=== PATIENT | female | born 1990 | race Caucasian/White ===

== ENCOUNTER 2017-10-12 12:06 | Observation (INO) | payer MEDICAID, OTHER ==
[2017-10-12 12:24] VITALS: BMI 24.3
[2017-10-12 14:05] LABS: BASO # 0.1 K/uL (0.0-0.2); BASO % 1.2 % (0.0-2.0); EOS # 0.1 K/uL (0.0-0.7); EOS % 1.1 % (0.0-4.0); HEMOGLOBIN 14.1 g/dL (11.0-16.0); LYMPH # 2.8 K/uL (1.0-4.3); LYMPH % 53.3 % (20.0-40.0); MEAN CORPUSCULAR HEMOGLOBIN 28.6 pg (27.0-31.0); MEAN CORPUSCULAR HGB CONC 32.9 g/dL (33.0-37.0); MONO # 0.5 K/uL (0.0-0.8); MONO % 8.9 % (0.0-10.0); NEUT # 1.9 K/uL (1.8-7.0); NEUT % 35.5 % (50.0-75.0); RBC 4.91 Mil/uL (3.80-5.20); RED CELL DISTRIBUTION WIDTH 13.7 % (11.5-14.5); WHITE BLOOD COUNT 5.3 K/uL (4.8-10.8)
[2017-10-12 14:13] LABS: INR 1.1; PROTHROMBIN TIME 12.1 SECONDS (9.7-12.2)
[2017-10-12 14:16] LABS: HCG,QUALITATIVE URINE NEGATIVE (NEGATIVE)
[2017-10-12 14:20] LABS: ALBUMIN 4.4 g/dL (3.5-5.0); ALT/SGPT 15 U/L (9-52); AST/SGOT 33 U/L (14-36); BLOOD UREA NITROGEN 13 mg/dL (7-17); CALCIUM 9.2 mg/dl (8.6-10.4); GFR AFRICAN-AMERICAN > 60; GFR NON-AFRICAN AMERICAN > 60; HDL CHOLESTEROL 61 mg/dL (30-70)
[2017-10-12 14:25] LABS: SQUAMOUS EPITHIAL 4 /hpf (0-5); URINE BILIRUBIN NEGATIVE (NEGATIVE); URINE BLOOD NEGATIVE (NEGATIVE); URINE CLARITY Clear (Clear); URINE COLOR Yellow (YELLOW); URINE GLUCOSE (UA) NORMAL (Normal); URINE LEUKOCYTE ESTERASE NEG Leu/uL (Negative); URINE PROTEIN NEGATIVE (NEGATIVE); URINE UROBILINOGEN NORMAL mg/dL (0.2-1.0)
[2017-10-12 14:30] LABS: LDL CHOLESTEROL 138 mg/dL (0-129)
[2017-10-12 14:31] LABS: B-TYPE NATRIURETIC PEPTIDE 100 pg/mL (0-450); CK-MB 0.34 ng/mL (0.0-3.38)
--- NOTE | 2017-10-12 14:47 | C.PDOC ---
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 Patient has history of aortic and mitral valve replacement in 2010 at [facility]. Patient had another porcine mitral valve replacement in 2013. Patient has not been medically evaluated during the past year because of insurance issues. Her most recent echocardiogram was one year ago at the [facility]. Patient presets to the ED for evaluation of mid-sternal chest pain which began 3 days ago. She describes her pain as a tightness and a "pulling" sensation that radiates to the left side of her neck. Patient has not taken anything for pain. She states the pain is mild, but was worried since she has not had any care for one year. She denies shortness of breath, dizziness, nausea, vomiting, extremity numbness/weakness, and recent travel. Her LMP was 3 days ago. Time Seen by Provider: 10/12/17 13:34 Chief Complaint (Nursing): Chest Pain History Per: Patient History/Exam Limitations: no limitations Onset/Duration Of Symptoms: Days (3) Current Symptoms Are (Timing): Still Present Quality: Tightness, "Pain", Other (pulling sensation ) Associated Symptoms: denies: Nausea Recent travel outside of the [place]: No Additional History Per: Patient Past Medical History Reviewed: Historical Data, Nursing Documentation, Vital Signs Vital Signs: Last Vital Signs Temp 97.8 F 10/12/17 12:24 Pulse 52 L 10/12/17 16:49 Resp 16 10/12/17 16:49 BP 105/61 10/12/17 16:49 Pulse Ox 97 10/12/17 17:18 - Medical History Other PMH: rheumatic fever Other Surgeries: valve replacement Family History: States: Unknown Family Hx - Social History Hx Alcohol Use: No Hx Substance Use: No - Immunization History Hx Tetanus Toxoid Vaccination: No Hx Influenza Vaccination: No Hx Pneumococcal Vaccination: No Review Of Systems Cardiovascular: Positive for: Chest Pain (mid-sternal ) Respiratory: Negative for: Shortness of Breath Gastrointestinal: Negative for: Nausea, Vomiting Neurological: Negative for: Weakness, Numbness, Dizziness Physical Exam - Physical Exam Appears: Non-toxic, No Acute Distress, Other (appears older than stated age ) Skin: Normal Color, Warm, Dry Head: Atraumatic, Normacephalic Eye(s): bilateral: Normal Inspection, EOMI Oral Mucosa: Moist Neck: Normal ROM, Supple Chest: Symmetrical, No Deformity, No Tenderness, Other (mid-sternal chest scar ) Cardiovascular: Rhythm Regular, Murmur (harsh systolic) Respiratory: Normal Breath Sounds, No Rales, No Rhonchi, No Wheezing Gastrointestinal/Abdominal: Soft, No Tenderness, No Guarding, No Rebound Extremity: Normal ROM, No Pedal Edema, Capillary Refill (less than 2 seconds ), No Swelling Pulses: Left Dorsalis Pedis: Normal, Right Dorsalis Pedis: Normal Neurological/Psych: Oriented x3, Normal Speech Gait: Steady ED Course And Treatment - Laboratory Results Result Diagrams: 10/12/17 13:58 10/12/17 13:58 Lab Interpretation: No Acute Changes ECG: Interpreted By Me, Viewed By Me ECG Rhythm: Sinus Bradycardia ECG Interpretation: No Acute Changes Interpretation Of ECG: NS at sinus bradycardia at 53 bpm with RBB, no priors available for comparison O2 Sat by Pulse Oximetry: 97 (on RA) Pulse Ox Interpretation: Normal Medical Decision Making Medical Decision Making: Impression: 27 year old female with mid-sternal chest pain Plan: * bloodwork * urinalysis * CXR * EKG * reassess and disposition Progress: Bloodwork, urinalysis, CXR, and EKG ordered and reviewed. case was discussed with ER attending who advised admission and to contact machine ii engraver. Placed orders for consults and admission 1500 Spoke with cardiology mid level practitioner Dr Garner to discuss case and will come to ED to evaluate; will need echo [address] Bee who accepts patient for observation. Disposition - Disposition Disposition: HOSPITALIZED Disposition Time: 15:15 Condition: STABLE - POA Present On Arrival: None - Clinical Impression Clinical Impression: H/O mitral valve replacement, H/O: rheumatic fever, Chest pain - PA / SENIOR BOILER OPERATOR / Resident Statement MD/DO has reviewed & agrees with the documentation as recorded. - Scribe Statement The provider has reviewed the documentation as recorded by the Scribe (Diane Barnes) All medical record entries made by the Scribe were at my direction and personally dictated by me. I have reviewed the chart and agree that the record accurately reflects my personal performance of the history, physical exam, medical decision making, and the department course for this patient. I have also personally directed, reviewed, and agree with the discharge instructions and disposition. Decision To Admit - Pt Status Changed To: Hospital Disposition Of: Observation - . Bed Request Type: Telemetry Admitting Physician: Shay Miranda Patient Diagnosis: H/O mitral valve replacement, H/O: rheumatic fever, Chest pain
--- NOTE | 2017-10-12 15:02 | RAD ---
HISTORY: COMPARISON: No prior. TECHNIQUE: Chest PA and lateral FINDINGS: LINES AND TUBES: None. LUNG AND PLEURA: The lungs are well inflated. There is mild pulmonary venous congestion. No focal consolidation. HEART AND MEDIASTINUM: The heart is not enlarged. The hilar and mediastinal contours are within normal limits. Status post median sternotomy and aortic valve replacement. SKELETAL STRUCTURES: The bony structures are within normal limits for the patient's age. VISUALIZED UPPER ABDOMEN: Normal. OTHER FINDINGS: None. IMPRESSION: No active pulmonary disease. Mild pulmonary venous congestion.
--- NOTE | 2017-10-12 17:35 | CP.PCM.HP ---
History of Present Illness - History of Present Illness History of Present Illness: Slackline Operator: Shira ([id number]) CC: Chest Pain HPI: Patient is a 27 year old Vietnamese-speaking female with past medical history of Rheumatic fever and Mitral/Aortic valve replacement (5 years ago), who presents to the ED with complaints of intermittent chest pain that has been ongoing for 3 days. Patient describes that pain has an intermittent pulsating chest pain that lasts for 3 minutes with radiation to the left neck and intermittently causing left arm numbness and it is caused with mild activity such as cleaning. Patient reports that the chest pain is improved with Ibuprofen and laying on the right side. Patient admits a total of 5 episodes over the past 3 days. Patient denies fever, chills, SOB, recent sickness, recent travels but admits to palpitations and one episode of dizziness this morning. PMHx: Rheumatic fever PSHx: Porcine mitral and aortic valve replacement ( 5 years ago in ), C- section X2 FHx: Denies Medication: ASA 81mg PO daily Allergies: NKDA Social Hx: Moved to the [place] 4 years ago, unemployed, lives with children. Denies current or former tobacco, ETOH and Illicit drugs. Present on Admission - Present on Admission Any Indicators Present on Admission: No Review of Systems - Constitutional Constitutional: absent: Chills, Excessive Sweating, Fever, Headache, Weakness - EENT Eyes: absent: Blurred Vision, Change in Vision Ears: Dizziness - Cardiovascular Cardiovascular: Chest Pain, Chest Pain with Activity, Palpitations. absent: Acrocyanosis, Chest Pain at Rest, Diaphoresis, Dyspnea, Dyspnea on Exertion, Orthopnea, Pedal Edema - Respiratory Respiratory: absent: Dyspnea, Hemoptysis, Wheezing, Pain on Inspiration - Gastrointestinal Gastrointestinal: Abdominal Pain, Nausea, Vomiting. absent: Constipation, Cramping, Diarrhea, Hematemesis, Hematochezia - Reproductive: Female Reproductive:Female: Menses 1-7 Days, Normal Menses - Neurological Neurological: Dizziness, Numbness. absent: Lack of Coordination, Weakness - Psychiatric Psychiatric: absent: Anxiety - Endocrine Endocrine: Palpitations. absent: Fatigue Past Patient History - Past Social History Smoking Status: Never Smoked - CARDIAC Other/Comment: rheumatoid fever with valve infection. - PSYCHIATRIC Hx Substance Use: No - SURGICAL HISTORY Other/Comment: valve replacement - ANESTHESIA Hx Anesthesia: Yes Hx Anesthesia Reactions: No Meds Allergies/Adverse Reactions: Allergies Allergy/AdvReac Type Severity Reaction Status Date / Time No Known Allergies Allergy Verified 10/12/17 12:22 Physical Exam - Constitutional Appears: No Acute Distress - Head Exam Head Exam: ATRAUMATIC, NORMAL INSPECTION - Eye Exam Eye Exam: EOMI, Normal appearance - ENT Exam ENT Exam: Mucous Membranes Moist - Respiratory Exam Respiratory Exam: Clear to Auscultation Bilateral, NORMAL BREATHING PATTERN. absent: Rhonchi, Wheezes, Respiratory Distress - Cardiovascular Exam Cardiovascular Exam: Tachycardia, REGULAR RHYTHM, +S1, +S2, Systolic Murmur - GI/Abdominal Exam GI & Abdominal Exam: Normal Bowel Sounds, Soft. absent: Diminished Bowel Sounds , Distended, Guarding, Hernia, Tenderness - Extremities Exam Extremities exam: Positive for: normal inspection. Negative for: calf tenderness - Neurological Exam Neurological exam: Alert, Normal Gait, Oriented x3 - Skin Skin Exam: Normal Color Results - Vital Signs Recent Vital Signs: Last Vital Signs Temp 97.8 F 10/12/17 12:24 Pulse 52 L 10/12/17 16:49 Resp 16 10/12/17 16:49 BP 105/61 10/12/17 16:49 Pulse Ox 100 10/12/17 16:49 - Labs Result Diagrams: 10/12/17 13:58 10/12/17 13:58 Labs: Laboratory Results - last 24 hr 10/12/17 10/12/17 10/12/17 13:58 13:58 13:58 WBC 5.3 RBC 4.91 Hgb 14.1 Hct 42.7 MCV 87.0 MCH 28.6 MCHC 32.9 L RDW 13.7 Plt Count 267 MPV 9.0 Neut % (Auto) 35.5 L Lymph % (Auto) 53.3 H [place] % (Auto) 8.9 Eos % (Auto) 1.1 Baso % (Auto) 1.2 Neut # (Auto) 1.9 Lymph # (Auto) 2.8 [place] # (Auto) 0.5 Eos # (Auto) 0.1 Baso # (Auto) 0.1 PT 12.1 INR 1.1 APTT 35 H Sodium Potassium Chloride Carbon Dioxide Anion Gap BUN Creatinine Est GFR ( Amer) Est GFR (Non-Af Amer) Random Glucose Calcium Total Bilirubin AST ALT Alkaline Phosphatase Total Creatine Kinase CK-MB (Mass) Troponin I NT-Pro-B Natriuret Pep Total Protein Albumin Globulin Albumin/Globulin Ratio Triglycerides Cholesterol LDL Cholesterol Direct HDL Cholesterol Urine Color Yellow Urine Clarity Clear Urine pH 7.0 Ur Specific [place] 1.016 Urine Protein Negative Urine Glucose (UA) Normal Urine Ketones Negative Urine Blood Negative Urine Nitrate Negative Urine Bilirubin Negative Urine Urobilinogen Normal Ur Leukocyte Esterase Neg Urine WBC (Auto) < 1 Urine RBC (Auto) < 1 Ur Squamous Epith Cells 4 Urine HCG, Qual Negative 10/12/17 13:58 WBC RBC Hgb Hct MCV MCH MCHC RDW Plt Count MPV Neut % (Auto) Lymph % (Auto) [place] % (Auto) Eos % (Auto) Baso % (Auto) Neut # (Auto) Lymph # (Auto) [place] # (Auto) Eos # (Auto) Baso # (Auto) PT INR APTT Sodium 139 Potassium 3.9 Chloride 99 Carbon Dioxide 27 Anion Gap 17 BUN 13 Creatinine 0.7 Est GFR ( Amer) > 60 Est GFR (Non-Af Amer) > 60 Random Glucose 63 L Calcium 9.2 Total Bilirubin 0.6 AST 33 ALT 15 Alkaline Phosphatase 71 Total Creatine Kinase 104 CK-MB (Mass) 0.34 Troponin I < 0.0120 NT-Pro-B Natriuret Pep 100 Total Protein 9.0 H Albumin 4.4 Globulin 4.6 H Albumin/Globulin Ratio 1.0 Triglycerides 73 Cholesterol 237 H LDL Cholesterol Direct 138 H HDL Cholesterol 61 Urine Color Urine Clarity Urine pH Ur Specific [place] Urine Protein Urine Glucose (UA) Urine Ketones Urine Blood Urine Nitrate Urine Bilirubin Urine Urobilinogen Ur Leukocyte Esterase Urine WBC (Auto) Urine RBC (Auto) Ur Squamous Epith Cells Urine HCG, Qual Assessment & Plan (1) Exertional chest pain Assessment and Plan: Consultation: Cardiology, Dr. Garner---> Help appreciated * Management as per recommendation Diagnostic imaging/Labs: EKG: NS at sinus bradycardia at 53 bpm with RBB F/u ECHO- R/o out Valvular Dz as patient has hx of mitral and aortic valve replacement F/u Lipid panel, HgbA1C, TSH and free T4 ELDON (Negative X1, f/u ELDON x2) and No EKG changes : R/o ACS Medication: * ASA 81mg PO daily Status: Acute (2) Status post aortic valve and mitral valve replacement Assessment and Plan: 5 year ago F/u Echo: r/o chest pain due to valvular Dz Status: Acute (3) Prophylactic measure Assessment and Plan: GI: Not indicated DVT: SCDs, ambulating All plans and management discussed with Dr. Barrios Status: Acute
--- NOTE | 2017-10-12 19:29 | CP.PCM.CON ---
<Ghulam Velasquez - Last Filed: 10/12/17 19:29> History of Present Illness - History of Present Illness History of Present Illness: 27 year old Sinhala-speaking female with past medical history of Rheumatic fever and Mitral/Aortic valve replacement 2010[place]) presents with complaints of intermittent chest pain that has been ongoing for 3 days. Patient describes that pain has an intermittent and pinching nature with radiation to the left neck and intermittently causing left arm numbness. She says it began when she was cleaning around the house. She states the pain lasts for around 2-3 minutes and improves with rest and worse when moving. Patient denies fever, chills, SOB, recent sickness, recent travels but admits to dizziness. She is fairly active and goes to work, cleans, takes care of kids. PMD: Dr. Rajan Cardio: Pita PMHx: Rheumatic fever PSHx: Porcine mitral and aortic valve replacement in , X2 FHx: Denies Medication: ASA 81mg PO daily Allergies: NKDA Social Hx: [place] the [place] 4 [place] ago, unemployed, lives with children. Denies current or former tobacco, ETOH and Illicit drugs. Review of Systems - Cardiovascular Cardiovascular: Chest Pain with Activity, Lightheadedness, Radiating Pain. absent: Dyspnea - Musculoskeletal Musculoskeletal: Neck Pain - Neurological Neurological: Dizziness Past Patient History - Past Social History Smoking Status: Never Smoked - CARDIAC Other/Comment: rheumatoid fever with valve infection. - PSYCHIATRIC Hx Substance Use: No - SURGICAL HISTORY Other/Comment: valve replacement - ANESTHESIA Hx Anesthesia: Yes Hx Anesthesia Reactions: No Meds Allergies/Adverse Reactions: Allergies Allergy/AdvReac Type Severity Reaction Status Date / Time No Known Allergies Allergy Verified 10/12/17 12:22 - Medications Medications: Current Medications Aspirin (Ecotrin) 81 mg PO DAILY PAT Physical Exam - Constitutional Appears: Well, Non-toxic, No Acute Distress - Head Exam Head Exam: ATRAUMATIC, NORMAL INSPECTION, NORMOCEPHALIC - Eye Exam Eye Exam: EOMI, Normal appearance, PERRL - ENT Exam ENT Exam: Mucous Membranes Moist - Respiratory Exam Respiratory Exam: Clear to Auscultation Bilateral, NORMAL BREATHING PATTERN - Cardiovascular Exam Cardiovascular Exam: REGULAR RHYTHM, +S1, +S2, Systolic Murmur - GI/Abdominal Exam GI & Abdominal Exam: Normal Bowel Sounds - Neurological Exam Neurological exam: Alert, CN II-XII Intact, Oriented x3 Results - Vital Signs Recent Vital Signs: Last Vital Signs Temp 98.3 F 10/12/17 17:48 Pulse 71 10/12/17 19:10 Resp 18 10/12/17 17:48 BP 104/66 10/12/17 17:48 Pulse Ox 98 10/12/17 17:48 - Labs Result Diagrams: 10/12/17 13:58 10/12/17 13:58 Labs: Laboratory Results - last 24 hr 10/12/17 10/12/17 10/12/17 13:58 13:58 13:58 WBC 5.3 RBC 4.91 Hgb 14.1 Hct 42.7 MCV 87.0 MCH 28.6 MCHC 32.9 L RDW 13.7 Plt Count 267 MPV 9.0 Neut % (Auto) 35.5 L Lymph % (Auto) 53.3 H [place] % (Auto) 8.9 Eos % (Auto) 1.1 Baso % (Auto) 1.2 Neut # (Auto) 1.9 Lymph # (Auto) 2.8 [place] # (Auto) 0.5 Eos # (Auto) 0.1 Baso # (Auto) 0.1 PT 12.1 INR 1.1 APTT 35 H Sodium Potassium Chloride Carbon Dioxide Anion Gap BUN Creatinine Est GFR ( Amer) Est GFR (Non-Af Amer) Random Glucose Calcium Total Bilirubin AST ALT Alkaline Phosphatase Total Creatine Kinase CK-MB (Mass) Troponin I NT-Pro-B Natriuret Pep Total Protein Albumin Globulin Albumin/Globulin Ratio Triglycerides Cholesterol LDL Cholesterol Direct HDL Cholesterol Urine Color Yellow Urine Clarity Clear Urine pH 7.0 Ur Specific [place] 1.016 Urine Protein Negative Urine Glucose (UA) Normal Urine Ketones Negative Urine Blood Negative Urine Nitrate Negative Urine Bilirubin Negative Urine Urobilinogen Normal Ur Leukocyte Esterase Neg Urine WBC (Auto) < 1 Urine RBC (Auto) < 1 Ur Squamous Epith Cells 4 Urine HCG, Qual Negative 10/12/17 13:58 WBC RBC Hgb Hct MCV MCH MCHC RDW Plt Count MPV Neut % (Auto) Lymph % (Auto) [place] % (Auto) Eos % (Auto) Baso % (Auto) Neut # (Auto) Lymph # (Auto) [place] # (Auto) Eos # (Auto) Baso # (Auto) PT INR APTT Sodium 139 Potassium 3.9 Chloride 99 Carbon Dioxide 27 Anion Gap 17 BUN 13 Creatinine 0.7 Est GFR ( Amer) > 60 Est GFR (Non-Af Amer) > 60 Random Glucose 63 L Calcium 9.2 Total Bilirubin 0.6 AST 33 ALT 15 Alkaline Phosphatase 71 Total Creatine Kinase 104 CK-MB (Mass) 0.34 Troponin I < 0.0120 NT-Pro-B Natriuret Pep 100 Total Protein 9.0 H Albumin 4.4 Globulin 4.6 H Albumin/Globulin Ratio 1.0 Triglycerides 73 Cholesterol 237 H LDL Cholesterol Direct 138 H HDL Cholesterol 61 Urine Color Urine Clarity Urine pH Ur Specific [place] Urine Protein Urine Glucose (UA) Urine Ketones Urine Blood Urine Nitrate Urine Bilirubin Urine Urobilinogen Ur Leukocyte Esterase Urine WBC (Auto) Urine RBC (Auto) Ur Squamous Epith Cells Urine HCG, Qual Assessment & Plan - Assessment and Plan (Free Text) Assessment: 27 year old Sinhala-speaking female with past medical history of Rheumatic fever and Mitral/Aortic valve replacement 2010 presents with complaints of intermittent chest pain that has been ongoing for 3 days. Plan: 1. Chest Pain -patient hemodynamically stable -EKG showing NS at sinus bradycardia at 53 bpm with RBB -ECHO -F/u Lipid panel, HgbA1C, TSH and free T4 -initial trop, follow trops x3 -CT chest pending -continue home aspirin <Shayne Garner - Last Filed: 10/13/17 09:46> Meds - Medications Medications: Current Medications Aspirin (Ecotrin) 81 mg PO DAILY PAT Results - Vital Signs Recent Vital Signs: Last Vital Signs Temp 97.7 F 10/13/17 07:15 Pulse 53 L 10/13/17 08:38 Resp 20 10/13/17 07:15 BP 106/66 10/13/17 07:15 Pulse Ox 99 10/13/17 08:38 - Labs Result Diagrams: 10/13/17 07:39 10/13/17 07:39 Labs: Laboratory Results - last 24 hr 10/12/17 10/12/17 10/12/17 13:58 13:58 13:58 WBC 5.3 RBC 4.91 Hgb 14.1 Hct 42.7 MCV 87.0 MCH 28.6 MCHC 32.9 L RDW 13.7 Plt Count 267 MPV 9.0 Neut % (Auto) 35.5 L Lymph % (Auto) 53.3 H [place] % (Auto) 8.9 Eos % (Auto) 1.1 Baso % (Auto) 1.2 Neut # (Auto) 1.9 Lymph # (Auto) 2.8 [place] # (Auto) 0.5 Eos # (Auto) 0.1 Baso # (Auto) 0.1 PT 12.1 INR 1.1 APTT 35 H Sodium Potassium Chloride Carbon Dioxide Anion Gap BUN Creatinine Est GFR ( Amer) Est GFR (Non-Af Amer) Random Glucose Hemoglobin A1c Calcium Total Bilirubin AST ALT Alkaline Phosphatase Total Creatine Kinase CK-MB (Mass) Troponin I NT-Pro-B Natriuret Pep Total Protein Albumin Globulin Albumin/Globulin Ratio Triglycerides Cholesterol LDL Cholesterol Direct HDL Cholesterol TSH 3rd Generation Urine Color Yellow Urine Clarity Clear Urine pH 7.0 Ur Specific [place] 1.016 Urine Protein Negative Urine Glucose (UA) Normal Urine Ketones Negative Urine Blood Negative Urine Nitrate Negative Urine Bilirubin Negative Urine Urobilinogen Normal Ur Leukocyte Esterase Neg Urine WBC (Auto) < 1 Urine RBC (Auto) < 1 Ur Squamous Epith Cells 4 Urine HCG, Qual Negative 10/12/17 10/12/17 10/13/17 13:58 23:53 02:01 WBC RBC Hgb Hct MCV MCH MCHC RDW Plt Count MPV Neut % (Auto) Lymph % (Auto) [place] % (Auto) Eos % (Auto) Baso % (Auto) Neut # (Auto) Lymph # (Auto) [place] # (Auto) Eos # (Auto) Baso # (Auto) PT INR APTT Sodium 139 Potassium 3.9 Chloride 99 Carbon Dioxide 27 Anion Gap 17 BUN 13 Creatinine 0.7 Est GFR ( Amer) > 60 Est GFR (Non-Af Amer) > 60 Random Glucose 63 L Hemoglobin A1c Calcium 9.2 Total Bilirubin 0.6 AST 33 ALT 15 Alkaline Phosphatase 71 Total Creatine Kinase 104 94 62 CK-MB (Mass) 0.34 0.26 0.24 Troponin I < 0.0120 0.0210 0.0180 NT-Pro-B Natriuret Pep 100 Total Protein 9.0 H Albumin 4.4 Globulin 4.6 H Albumin/Globulin Ratio 1.0 Triglycerides 73 Cholesterol 237 H LDL Cholesterol Direct 138 H HDL Cholesterol 61 TSH 3rd Generation Urine Color Urine Clarity Urine pH Ur Specific [place] Urine Protein Urine Glucose (UA) Urine Ketones Urine Blood Urine Nitrate Urine Bilirubin Urine Urobilinogen Ur Leukocyte Esterase Urine WBC (Auto) Urine RBC (Auto) Ur Squamous Epith Cells Urine HCG, Qual 10/13/17 10/13/17 10/13/17 07:39 07:39 07:39 WBC 4.9 RBC 4.52 Hgb 13.1 Hct 39.4 MCV 87.2 MCH 28.9 MCHC 33.1 RDW 13.9 Plt Count 266 MPV 8.9 Neut % (Auto) 33.8 L Lymph % (Auto) 54.0 H [place] % (Auto) 9.4 Eos % (Auto) 1.9 Baso % (Auto) 0.9 Neut # (Auto) 1.6 L Lymph # (Auto) 2.6 [place] # (Auto) 0.5 Eos # (Auto) 0.1 Baso # (Auto) 0.0 PT INR APTT Sodium 140 Potassium 4.3 Chloride 104 Carbon Dioxide 28 Anion Gap 13 BUN 15 Creatinine 0.6 L Est GFR ( Amer) > 60 Est GFR (Non-Af Amer) > 60 Random Glucose 80 Hemoglobin A1c 5.6 Calcium 8.8 Total Bilirubin 0.5 AST 39 H ALT 14 Alkaline Phosphatase 73 Total Creatine Kinase CK-MB (Mass) Troponin I NT-Pro-B Natriuret Pep Total Protein 7.5 Albumin 4.0 Globulin 3.5 Albumin/Globulin Ratio 1.2 Triglycerides 50 D Cholesterol 215 H LDL Cholesterol Direct HDL Cholesterol 52 TSH 3rd Generation 2.20 Urine Color Urine Clarity Urine pH Ur Specific [place] Urine Protein Urine Glucose (UA) Urine Ketones Urine Blood Urine Nitrate Urine Bilirubin Urine Urobilinogen Ur Leukocyte Esterase Urine WBC (Auto) Urine RBC (Auto) Ur Squamous Epith Cells Urine HCG, Qual Assessment & Plan (1) Chest pain Status: Acute (2) History of rheumatic fever Status: Acute (3) Status post aortic valve and mitral valve replacement Status: Acute Attending/Attestation - Attestation I have personally seen and examined this patient.: Yes I have fully participated in the care of the patient.: Yes I have reviewed all pertinent clinical information: Yes Notes (Text): 10/13/17 09:45 atypical CP hx of MVR/AVR CT chest echo sx unlikely secondary to CAD based on hx
[2017-10-13 00:14] LABS: CK-MB 0.26 ng/mL (0.0-3.38); TROPONIN I 0.021 ng/mL (0.00-0.120)
[2017-10-13 03:04] LABS: CK-MB 0.24 ng/mL (0.0-3.38); TROPONIN I 0.018 ng/mL (0.00-0.120)
[2017-10-13 07:44] LABS: BASO % 0.9 % (0.0-2.0); EOS # 0.1 K/uL (0.0-0.7); EOS % 1.9 % (0.0-4.0); HEMOGLOBIN 13.1 g/dL (11.0-16.0); LYMPH # 2.6 K/uL (1.0-4.3); MEAN CELL VOLUME 87.2 fL (81.0-99.0); MEAN CORPUSCULAR HEMOGLOBIN 28.9 pg (27.0-31.0); MEAN CORPUSCULAR HGB CONC 33.1 g/dL (33.0-37.0); MEAN PLATELET VOLUME 8.9 fL (7.2-11.7); MONO # 0.5 K/uL (0.0-0.8); MONO % 9.4 % (0.0-10.0); NEUT # 1.6 K/uL (1.8-7.0); NEUT % 33.8 % (50.0-75.0); NRBC % 0.1 % (0.0-2.0); RBC 4.52 Mil/uL (3.80-5.20); RED CELL DISTRIBUTION WIDTH 13.9 % (11.5-14.5); WHITE BLOOD COUNT 4.9 K/uL (4.8-10.8)
[2017-10-13 08:01] LABS: ALB/GLOB RATIO 1.2 (1.0-2.1); ALT/SGPT 14 U/L (9-52); AST/SGOT 39 U/L (14-36); BLOOD UREA NITROGEN 15 mg/dL (7-17); CALCIUM 8.8 mg/dl (8.6-10.4); GFR AFRICAN-AMERICAN > 60; GFR NON-AFRICAN AMERICAN > 60; HDL CHOLESTEROL 52 mg/dL (30-70)
--- NOTE | 2017-10-13 10:42 | CT ---
PROCEDURE: CT Chest without contrast HISTORY: chest wall pain COMPARISON: None. TECHNIQUE: Contiguous axial images were obtained through the chest without intravenous contrast enhancement. Sagittal and coronal reconstructions were performed. Radiation dose (DLP): 376.45 mGy-cm. This CT exam was performed using one or more of the following dose reduction techniques: Automated exposure control, adjustment of the mA and/or kV according to patient size, and/or use of iterative reconstruction technique. FINDINGS: LUNGS: Clear lungs. Visualized airway clear. MEDIASTINUM: Unremarkable thoracic aorta. No aneurysm. Normal heart size. Status post mitral and aortic valvular replacement. Main pulmonary artery unremarkable. No vascular congestion. No lymphadenopathy. Sternotomy wires are noted PLEURA: No pleural fluid. No pneumothorax. BONES: No fracture. No destructive lesion. UPPER ABDOMEN: Grossly unremarkable. OTHER FINDINGS: None. IMPRESSION: Status post mitral and aortic valvular replacement. Sternotomy wires. No evidence of fracture. No acute infiltrate.
[2017-10-13 10:46] LABS: LDL CHOLESTEROL 135 mg/dL (0-129)
--- NOTE | 2017-10-13 18:51 | CP.PCM.PN ---
Subjective - Date & Time of Evaluation Date of Evaluation: 10/13/17 Time of Evaluation: 07:40 - Subjective Subjective: Medicine progress note ( Dr. Barrios's service) Patient was seen and examined at bedside. Patient reports that she is doing well and with any acute issues. Patient denies chest pain, palpitations, SOB, nausea, vomiting, diaphoresis. Objective - Vital Signs/Intake and Output Vital Signs (last 24 hours): Temp Pulse Resp BP Pulse Ox 97.9 F 55 L 18 112/69 99 10/13/17 15:03 10/13/17 15:03 10/13/17 15:03 10/13/17 15:03 10/13/17 15:03 Intake and Output: 10/13/17 10/13/17 06:59 18:59 Intake Total 110 720 Balance 110 720 - Medications Medications: Current Medications Aspirin (Ecotrin) 81 mg PO DAILY PAT Last Admin: 10/13/17 11:30 Dose: 81 mg - Labs Labs: 10/13/17 07:39 10/13/17 07:39 PT 12.1 SECONDS (9.7-12.2) 10/12/17 13:58 INR 1.1 10/12/17 13:58 APTT 35 SECONDS (21-34) H 10/12/17 13:58 - Constitutional Appears: Well, No Acute Distress - Head Exam Head Exam: ATRAUMATIC, NORMAL INSPECTION - Eye Exam Eye Exam: EOMI, Normal appearance - ENT Exam ENT Exam: Mucous Membranes Moist - Respiratory Exam Respiratory Exam: Clear to Ausculation Bilateral, NORMAL BREATHING PATTERN. absent: Chest Wall Tenderness, Prolonged Expiratory Phase, Rhonchi, Wheezes, Respiratory Distress - Cardiovascular Exam Cardiovascular Exam: REGULAR RHYTHM, +S1, +S2, Murmur Additional comments: Systolic - GI/Abdominal Exam GI & Abdominal Exam: Soft, Normal Bowel Sounds. absent: Distended, Firm, Guarding, Rigid, Tenderness - Extremities Exam Extremities Exam: Normal Inspection. absent: Calf Tenderness, Joint Swelling, Pedal Edema, Tenderness - Neurological Exam Neurological Exam: Alert, Awake, Normal Gait, Oriented x3 - Psychiatric Exam Psychiatric exam: Normal Affect - Skin Skin Exam: Normal Color Assessment and Plan (1) Exertional chest pain Assessment & Plan: Consultation: Cardiology, Dr. Garner---> Help appreciated * Management as per recommendation Diagnostic imaging/Labs: EKG: NS at sinus bradycardia at 53 bpm with RBB Awaiting official ECHO report- R/o out Valvular Dz as patient has hx of mitral and aortic valve replacement Lipid panel: * TGL:30, Chol:215, LDL: 135, HDL:52 TSH: 2.26 HgbA1C: 5.6 ELDON (Negative X3) and No EKG changes ESR, CRP ( WNL) and Influenza negative ( R/o Viral prodrome Medication: * ASA 81mg PO daily Status: Acute (2) Status post aortic valve and mitral valve replacement Assessment & Plan: 5 year ago Awaiting official Echo report: r/o chest pain due to valvular Dz Status: Acute (3) Prophylactic measure Assessment & Plan: GI: Not indicated DVT: SCDs, ambulating Disposition: Plans for discharge tomorrow and outpatient cardiology follow up after official echocardiogram report All plans and management discussed with Dr. Barrios Status: Acute
--- NOTE | 2017-10-13 19:03 | CP.PCM.PN ---
Subjective - Date & Time of Evaluation Date of Evaluation: 10/13/17 Time of Evaluation: 09:00 - Subjective Subjective: Patient seen and evaluated bedside. no acute issues overnight. Patient states her chest pain has resolved and feeling well. No additional complaints at this time. Objective - Vital Signs/Intake and Output Vital Signs (last 24 hours): Temp Pulse Resp BP Pulse Ox 97.9 F 55 L 18 112/69 99 10/13/17 15:03 10/13/17 15:03 10/13/17 15:03 10/13/17 15:03 10/13/17 15:03 Intake and Output: 10/13/17 10/14/17 18:59 06:59 Intake Total 720 Balance 720 - Medications Medications: Current Medications Aspirin (Ecotrin) 81 mg PO DAILY PAT Last Admin: 10/13/17 11:30 Dose: 81 mg - Labs Labs: 10/13/17 07:39 10/13/17 07:39 PT 12.1 SECONDS (9.7-12.2) 10/12/17 13:58 INR 1.1 10/12/17 13:58 APTT 35 SECONDS (21-34) H 10/12/17 13:58 - Constitutional Appears: Well, Non-toxic, No Acute Distress - Head Exam Head Exam: ATRAUMATIC, NORMAL INSPECTION, NORMOCEPHALIC - Eye Exam Eye Exam: EOMI, Normal appearance - ENT Exam ENT Exam: Mucous Membranes Moist - Cardiovascular Exam Cardiovascular Exam: +S1, +S2, Murmur - Extremities Exam Extremities Exam: Full ROM - Neurological Exam Neurological Exam: Alert, Awake, Oriented x3 Assessment and Plan - Assessment and Plan (Free Text) Assessment: 27 year old Moroccan-speaking female with past medical history of Rheumatic fever and Mitral/Aortic valve replacement 2010 presents with complaints of intermittent chest pain that has been ongoing for 3 days. Patient states pain has resolved today. Plan: Plan: 1. Chest Pain -improved today -patient hemodynamically stable -EKG showing NS at sinus bradycardia at 53 bpm with RBB -Echo pending read -Cholesterol 215, LDL 135, HDL: 52 -trops negative x3 -CT chest showing mitral an aortic valve replacements, no active disease -continue home aspirin -ESR, CRP pending -TSH 2.20
[2017-10-14 00:21] VITALS: RESP 20
[2017-10-14 07:57] VITALS: BP 102/63; TEMP 98; O2SAT 98
[2017-10-14 08:19] LABS: BASO # 0.1 K/uL (0.0-0.2); BASO % 1.1 % (0.0-2.0); EOS # 0.1 K/uL (0.0-0.7); EOS % 1.5 % (0.0-4.0); LYMPH # 2.5 K/uL (1.0-4.3); LYMPH % 52.7 % (20.0-40.0); MEAN CELL VOLUME 86.3 fL (81.0-99.0); MEAN CORPUSCULAR HEMOGLOBIN 28.9 pg (27.0-31.0); MEAN CORPUSCULAR HGB CONC 33.5 g/dL (33.0-37.0); MEAN PLATELET VOLUME 8.9 fL (7.2-11.7); MONO # 0.5 K/uL (0.0-0.8); MONO % 9.5 % (0.0-10.0); NEUT # 1.7 K/uL (1.8-7.0); NEUT % 35.2 % (50.0-75.0); RBC 4.49 Mil/uL (3.80-5.20); RED CELL DISTRIBUTION WIDTH 13.6 % (11.5-14.5); WHITE BLOOD COUNT 4.8 K/uL (4.8-10.8)
[2017-10-14 08:30] VITALS: PULSE 56
[2017-10-14 08:40] LABS: ALBUMIN 3.7 g/dL (3.5-5.0); ALT/SGPT 20 U/L (9-52); AST/SGOT 34 U/L (14-36); BLOOD UREA NITROGEN 13 mg/dL (7-17); CALCIUM 8.4 mg/dl (8.6-10.4); GFR AFRICAN-AMERICAN > 60; GFR NON-AFRICAN AMERICAN > 60
--- NOTE | 2017-10-14 08:44 | CP.PCM.PN ---
Subjective - Date & Time of Evaluation Date of Evaluation: 10/14/17 Time of Evaluation: 09:00 - Subjective Subjective: PAtient seen and evaluated bedside. No acute issues overnight. patient is doing well denies chest pain, shortness of breath or any other complaints at this time. Objective - Vital Signs/Intake and Output Vital Signs (last 24 hours): Temp Pulse Resp BP Pulse Ox 98.0 F 56 L 20 102/63 98 10/14/17 07:30 10/14/17 08:00 10/14/17 07:30 10/14/17 07:30 10/14/17 07:30 - Medications Medications: Current Medications Aspirin (Ecotrin) 81 mg PO DAILY PAT Last Admin: 10/13/17 11:30 Dose: 81 mg - Labs Labs: 10/14/17 08:09 10/14/17 08:09 PT 12.1 SECONDS (9.7-12.2) 10/12/17 13:58 INR 1.1 10/12/17 13:58 APTT 35 SECONDS (21-34) H 10/12/17 13:58 - Constitutional Appears: Non-toxic, No Acute Distress - Head Exam Head Exam: ATRAUMATIC, NORMAL INSPECTION, NORMOCEPHALIC - Eye Exam Eye Exam: EOMI, Normal appearance Pupil Exam: NORMAL ACCOMODATION - ENT Exam ENT Exam: Mucous Membranes Moist - Respiratory Exam Respiratory Exam: Clear to Ausculation Bilateral, NORMAL BREATHING PATTERN - Cardiovascular Exam Cardiovascular Exam: REGULAR RHYTHM, +S1, +S2, Murmur - GI/Abdominal Exam GI & Abdominal Exam: Soft, Normal Bowel Sounds - Neurological Exam Neurological Exam: Alert, Awake, Oriented x3 Assessment and Plan - Assessment and Plan (Free Text) Assessment: 27 year old Turkish-speaking female with past medical history of Rheumatic fever and Mitral/Aortic valve replacement 2010 presents with complaints of intermittent chest pain. Patients chest pain resolved, will follow outpatient cardiology. Plan: 1. Chest Pain -improved -patient hemodynamically stable -EKG showing NS at sinus bradycardia at 53 bpm with RBB -Echo showing normal EF, kat and aortic replacement valves with normal gradients, well functioning, with mildly elevated right sided pressures. Septal flattening of LV consistent with RV pressure overload. -Cholesterol 215, LDL 135, HDL: 52 -trops negative x3 -CT chest showing mitral an aortic valve replacements, no active disease -continue home aspirin -ESR, CRP normal -TSH 2.20 -follow up outpatient cardiology
--- NOTE | 2017-10-14 13:23 | CARD ---
APPROVED REPORT EKG Measurement Heart [id number] [place] [id number] <Conclusion> Sinus bradycardia Right bundle branch block Abnormal ECG
--- NOTE | 2017-10-14 14:46 | CP.PCM.DIS ---
Provider - Provider Date of Admission: 10/12/17 15:27 Attending physician: Shay Miranda MD Time Spent in preparation of Discharge (in minutes): 35 Diagnosis - Discharge Diagnosis (1) Exertional chest pain Status: Acute (2) Status post aortic valve and mitral valve replacement Status: Chronic (3) Prophylactic measure Status: Acute Hospital Course - Lab Results Lab Results: Most Recent Lab Values WBC 4.8 K/uL (4.8-10.8) 10/14/17 08:09 RBC 4.49 Mil/uL (3.80-5.20) 10/14/17 08:09 Hgb 13.0 g/dL (11.0-16.0) 10/14/17 08:09 Hct 38.8 % (34.0-47.0) 10/14/17 08:09 MCV 86.3 fL (81.0-99.0) 10/14/17 08:09 MCH 28.9 pg (27.0-31.0) 10/14/17 08:09 MCHC 33.5 g/dL (33.0-37.0) 10/14/17 08:09 RDW 13.6 % (11.5-14.5) 10/14/17 08:09 Plt Count 257 K/uL (130-400) 10/14/17 08:09 MPV 8.9 fL (7.2-11.7) 10/14/17 08:09 Neut % (Auto) 35.2 % (50.0-75.0) L 10/14/17 08:09 Lymph % (Auto) 52.7 % (20.0-40.0) H 10/14/17 08:09 [place] % (Auto) 9.5 % (0.0-10.0) 10/14/17 08:09 Eos % (Auto) 1.5 % (0.0-4.0) 10/14/17 08:09 Baso % (Auto) 1.1 % (0.0-2.0) 10/14/17 08:09 Neut # (Auto) 1.7 K/uL (1.8-7.0) L 10/14/17 08:09 Lymph # (Auto) 2.5 K/uL (1.0-4.3) 10/14/17 08:09 [place] # (Auto) 0.5 K/uL (0.0-0.8) 10/14/17 08:09 Eos # (Auto) 0.1 K/uL (0.0-0.7) 10/14/17 08:09 Baso # (Auto) 0.1 K/uL (0.0-0.2) 10/14/17 08:09 ESR 9 mm/hr (0-20) 10/13/17 14:52 PT 12.1 SECONDS (9.7-12.2) 10/12/17 13:58 INR 1.1 10/12/17 13:58 APTT 35 SECONDS (21-34) H 10/12/17 13:58 Sodium 141 mmol/L (132-148) 10/14/17 08:09 Potassium 4.2 mmol/L (3.6-5.2) 10/14/17 08:09 Chloride 105 mmol/L (98-107) 10/14/17 08:09 Carbon Dioxide 25 mmol/L (22-30) 10/14/17 08:09 Anion Gap 15 (10-20) 10/14/17 08:09 BUN 13 mg/dL (7-17) 10/14/17 08:09 Creatinine 0.6 mg/dL (0.7-1.2) L 10/14/17 08:09 Est GFR ( Amer) > 60 10/14/17 08:09 Est GFR (Non-Af Amer) > 60 10/14/17 08:09 Random Glucose 86 mg/dL (65-105) 10/14/17 08:09 Hemoglobin A1c 5.6 % (4.2-6.5) 10/13/17 07:39 Calcium 8.4 mg/dl (8.6-10.4) L 10/14/17 08:09 Phosphorus 3.7 mg/dL (2.5-4.5) 10/14/17 08:09 Magnesium 1.9 mg/dL (1.6-2.3) 10/14/17 08:09 Total Bilirubin 0.4 mg/dL (0.2-1.3) 10/14/17 08:09 AST 34 U/L (14-36) 10/14/17 08:09 ALT 20 U/L (9-52) 10/14/17 08:09 Alkaline Phosphatase 62 U/L (38-126) 10/14/17 08:09 Total Creatine Kinase 62 U/L (30-135) 10/13/17 02:01 CK-MB (Mass) 0.24 ng/mL (0.0-3.38) 10/13/17 02:01 Troponin I 0.0180 ng/mL (0.00-0.120) 10/13/17 02:01 C-React Prot High Sens 1.02 mg/L (1.00-3.00) 10/13/17 14:52 NT-Pro-B Natriuret Pep 100 pg/mL (0-450) 10/12/17 13:58 Total Protein 7.4 g/dL (6.3-8.3) 10/14/17 08:09 Albumin 3.7 g/dL (3.5-5.0) 10/14/17 08:09 Globulin 3.6 gm/dL (2.2-3.9) 10/14/17 08:09 Albumin/Globulin Ratio 1.0 (1.0-2.1) 10/14/17 08:09 Triglycerides 50 mg/dL (0-149) D 10/13/17 07:39 Cholesterol 215 mg/dL (0-199) H 10/13/17 07:39 LDL Cholesterol Direct 135 mg/dL (0-129) H 10/13/17 07:39 HDL Cholesterol 52 mg/dL (30-70) 10/13/17 07:39 TSH 3rd Generation 2.20 mIU/L (0.46-4.68) 10/13/17 07:39 Urine Color Yellow (YELLOW) 10/12/17 13:58 Urine Clarity Clear (Clear) 10/12/17 13:58 Urine pH 7.0 (5.0-8.0) 10/12/17 13:58 Ur Specific [place] 1.016 (1.003-1.030) 10/12/17 13:58 Urine Protein Negative mg/dL (NEGATIVE) 10/12/17 13:58 Urine Glucose (UA) Normal mg/dL (Normal) 10/12/17 13:58 Urine Ketones Negative mg/dL (NEGATIVE) 10/12/17 13:58 Urine Blood Negative (NEGATIVE) 10/12/17 13:58 Urine Nitrate Negative (NEGATIVE) 10/12/17 13:58 Urine Bilirubin Negative (NEGATIVE) 10/12/17 13:58 Urine Urobilinogen Normal mg/dL (0.2-1.0) 10/12/17 13:58 Ur Leukocyte Esterase Neg Santi/uL (Negative) 10/12/17 13:58 Urine WBC (Auto) < 1 /hpf (0-5) 10/12/17 13:58 Urine RBC (Auto) < 1 /hpf (0-3) 10/12/17 13:58 Ur Squamous Epith Cells 4 /hpf (0-5) 10/12/17 13:58 Urine HCG, Qual Negative (NEGATIVE) 10/12/17 13:58 Influenza Typ A,B (EIA) Negative for flu a/b (NEGATIVE) 10/13/17 11:42 - Hospital Course Hospital Course: HPI (As per admission): Patient is a 27 year old [place]-speaking female with past medical history of Rheumatic fever and Mitral/Aortic valve replacement (5 years ago), who presents to the ED with complaints of intermittent chest pain that has been ongoing for 3 days. Patient describes that pain has an intermittent pulsating chest pain that lasts for 3 minutes with radiation to the left neck and intermittently causing left arm numbness and it is caused with mild activity such as cleaning. Patient reports that the chest pain is improved with Ibuprofen and laying on the right side. Patient admits a total of 5 episodes over the past 3 days. Patient denies fever, chills, SOB, recent sickness, recent travels but admits to palpitations and one episode of dizziness this morning. Hospital Course: Patient was admitted with the consideration of chest pain; rule out valvular disease and IL. Biophysics Scientist, Dr. Garner was consulted who recommended an echocardiogram. Over the course of admission, patient remained stable with no acute issues and diagnosis of acute IL was ruled out with labs and EKG imaging. 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 Patient is to follow up with Dr. Garner in 2 weeks and follow up echocardiogram. Pertinent Imaging/ Labs: EKG: NS at sinus bradycardia at 53 bpm with RBBB F/u official ECHO report Lipid panel: * TGL:30, Chol:215, LDL: 135, HDL:52 TSH: 2.26 HgbA1C: 5.6 ELDON (Negative X3) and No EKG changes ESR, CRP ( WNL) and Influenza negative ( R/o Viral prodrome) This is a brief summary of event. For a complete course, please refer to the medical record Discharge Exam - Head Exam Head Exam: ATRAUMATIC, NORMAL INSPECTION, NORMOCEPHALIC - Eye Exam Eye Exam: Normal appearance - ENT Exam ENT Exam: Mucous Membranes Moist - Respiratory Exam Respiratory Exam: Clear to PA & Lateral, NORMAL BREATHING PATTERN, UNREMARKABLE. absent: Chest Wall Tenderness, Prolonged Expiratory Phase, Wheezes, Respiratory Distress - Cardiovascular Exam Cardiovascular Exam: REGULAR RHYTHM, +S1, +S2, Systolic Murmur - GI/Abdominal Exam GI & Abdominal Exam: Firm, Normal Bowel Sounds, Soft. absent: Diminished Bowel Sounds, Distended, Guarding, Tenderness, Unremarkable - Extremities Exam Extremities exam: normal inspection - Neurological Exam Neurological exam: Alert, Normal Gait, Oriented x3 - Psychiatric Exam Psychiatric exam: Normal Affect, Normal Mood - Skin Skin Exam: Normal Color Discharge Plan - Discharge Medications Prescriptions: Aspirin [Ecotrin] 81 mg PO DAILY 30 Days #30 tabec - Follow Up Plan Condition: STABLE Disposition: HOME/ ROUTINE Additional Instructions: Please discharge patient home Please continue your home medication: 1. Aspirin 81mg PO daily Please follow with up with the [facility] to [facility], Please follow up with Biophysics Scientist, Dr. Garner out patient in 2 weeks and follow up official echocardiogram report Please return to the hospital if symptoms resume Please take care
--- NOTE | 2017-10-14 22:10 | CARD ---
APPROVED REPORT EKG Measurement Heart [id number] <Conclusion> Sinus bradycardia with 1st degree AV block Possible Left atrial enlargement Right bundle branch block Abnormal ECG
--- NOTE | 2017-10-15 21:00 | CARD ---
APPROVED REPORT EXAM: Two-dimensional and M-mode echocardiogram with Doppler and color Doppler. Other Information Quality : GoodRhythm : INDICATION Chest Pain Surgery/Intervention Status/Post Aortic Valve Replacement: Bioprosthetic Status/Post Mitral Valve Replacement: Bioprosthetic 2D DIMENSIONS IVSd0.8 (0.7-1.1cm)LVDd4.6 (3.9-5.9cm) PWd0.9 (0.7-1.1cm)LVDs3.1 (2.5-4.0cm) FS (%) 33.2 %LVEF (%)61.8 (>50%) M-Mode DIMENSIONS Left Atrium (MM)3.16 (2.5-4.0cm)Aortic Root2.96 (2.2-3.7cm) Aortic Cusp Exc.1.59 (1.5-2.0cm) Aortic Valve AoV Peak Qaebstfm802.7cm/sAoV VTI66.8cmAO Peak GR.36mmHg LVOT Peak Atfkgixk520.5cm/Ethan Mean GR.24mmHg Mitral Valve MV E Cvdentgb960.6cm/sMV E Peak Gr.14mmHgMV A Ckumxsst42.9cm/s MV E Mean Gr.5mmHgMV YQH582uqS/A ratio1.8 MVA (PHT)1.35cm2 TDI E/Lateral E'0.0E/Medial E'0.0 Tricuspid Valve TR Peak Lzezernt984pb/sTR Peak Gr.13mmHg LEFT VENTRICLE The left ventricle is normal size. There is normal left ventricular wall thickness. Left ventricle systolic function is normal. The Ejection Fraction is 60-65%. There is normal LV segmental wall motion. The left ventricular diastolic function is normal. RIGHT VENTRICLE The right ventricle is normal size. There is normal right ventricular wall thickness. The right ventricular systolic function is normal. ATRIA The left atrium size is normal. The right atrium size is normal. The interatrial septum is intact with no evidence for an atrial septal defect. AORTIC VALVE Calculated aortic valve maximum pressure gradient is 36 mmHg and mean pressure gradient of 24 mmHg. There is a bioprosthetic aortic valve prosthesis. Bioprosthesis leaflets are thickened, but move well. MITRAL VALVE There is a bioprosthetic mitral valve. Bioprosthesis leaflets are thickened, but move well. Doppler evidence of mild mitral regurgitation is normal for this valve. TRICUSPID VALVE The tricuspid valve is normal in structure. There is trace to mild tricuspid regurgitation. Right ventricular systolic pressure is estimated at less than 30 mmHg. There is no pulmonary hypertension. PULMONIC VALVE The pulmonic valve is not well visualized. There is no pulmonic valvular regurgitation. GREAT VESSELS The aortic root is normal in size. PERICARDIAL EFFUSION There is no significant pericardial effusion. <Conclusion> Left ventricle systolic function is normal. The Ejection Fraction is 60-65%. There is a bioprosthetic aortic valve prosthesis. Bioprosthesis leaflets are thickened, but move well. There is a bioprosthetic mitral valve. Doppler evidence of mild mitral regurgitation is normal for this valve. There is trace to mild tricuspid regurgitation. There is no pulmonary hypertension. There is no pulmonic valvular regurgitation.
== END 2017-10-14 14:44 | disposition home or self-care (01) ==
LOC: C.ER 12:06 → C.9E 15:27 → C.6T 17:01
PROVIDERS: ADMIT Internal Medicine; ATTEND Internal Medicine
DX: R07.2 Precordial pain (principal); Z95.3 Presence of xenogenic heart valve; Z87.898 Personal history of other specified conditions; R00.1 Bradycardia, unspecified; I45.10 Unspecified right bundle-branch block
CPT/HCPCS: 36415; 71046; 71250; 80053; 80061; 81001; 83036; 83735; 83880; 84100; 84443; 84484; 84703; 85025; 85610; 85651; 85730; 86140; 87804; 93005; 93306; 99285; G0378